=== PATIENT | female | born 1995 ===

== ENCOUNTER 2020-01-02 09:23 | Inpatient (IN) | payer OTHER ==
[2020-01-02] MEDS ORDERED: Penicillin G Potassium 5 MILL.UNITS VIAL ONE (09:58)
[2020-01-02 10:21] LABS: Hemoglobin 11.7 g/dL (12.0-16.0); Mean Corpuscular HGB CONC 33.6 g/dL (32.0-36.0); Mean Corpuscular Hemoglobin 31.5 pg (27.0-31.0); Mean Corpuscular Volume 93.8 fL (78.0-98.0); Mean Platelet Volume 7.1 fL (7.4-10.4); Platelet Count 236 thou/uL (130-400); RBC Distribution Width 12.1 % (11.5-14.5); Red Blood Cell (RBC) Count 3.71 mill/uL (4.20-5.40); White Blood Cell (WBC) Count 7.4 thou/uL (4.8-10.8)
[2020-01-02 11:02] LABS: Syphilis Antibody Nonreactive (Nonreactive); Syphilis Antibody Index 0.02 S/CO (<1.00 Non-Reactive)
[2020-01-02 11:03] LABS: HBSAg Index 0.23 S/CO (0-0.99); Hep B Surf Ag Non-Reactive S/CO (NonReactive)
[2020-01-02] MEDS ORDERED: Fentanyl 4 mcg/Bup 0.1% Cadd 100 ML ONE (11:10)
[2020-01-02 11:26] VITALS: BMI 26.3
[2020-01-02] MEDS ORDERED: Naloxone HCl 0.4 mg/ml Vial IVP PRN ×2 (11:47)
[2020-01-02] MEDS ORDERED: Ondansetron PF 4 MG/2 ML Vial IVP PRN ×2 (11:47→19:40)
[2020-01-02] MEDS ORDERED: diphenhydrAMINE 50 MG/ML VIAL IVP PRN (11:47)
[2020-01-02] MEDS ORDERED: Acetaminophen 325 MG TAB PO PRN (11:47)
[2020-01-02] MEDS ORDERED: EPHEDRINE 25 MG/5 ML SYRINGE SLOW IVP PRN (11:47)
[2020-01-02] MEDS ORDERED: Promethazine HCl 25 MG/ML VIAL IM PRN ×2 (11:47→19:40)
[2020-01-02] MEDS ORDERED: Lactated Ringer's 500 ML IV PRN (11:47)
[2020-01-02] MEDS ORDERED: Bupivacaine 0.25% HCL 30 ML VIAL ONE (11:50)
[2020-01-02] MEDS ORDERED: EPHEDRINE 25 MG/5 ML SYRINGE ONE (11:50)
[2020-01-02] MEDS ORDERED: Lidocaine 2% MPF 10 ML AMP (For Epidural Use) ONE (11:50)
[2020-01-02] MEDS ORDERED: Communication Order-Pharmacy FS SCH (12:00)
[2020-01-02] MEDS ORDERED: Fentanyl 4 mcg/Bupivacaine 0.1% Cassette 100 ML EPIDURAL SCH (12:00)
[2020-01-02] MEDS ORDERED: Lidocaine 2% 10 ML INJ ONE (13:07)
[2020-01-02] MEDS ORDERED: Penicillin G 2.5 MILL.units 50 ML ONE (13:08)
[2020-01-02] MEDS ORDERED: NS / Oxytocin 40 units/1000ml 1,000 ML ONE (13:11)
[2020-01-02] MEDS ORDERED: NS w/ Oxytocin 10 units 500 ML ONE (16:23)
[2020-01-02] MEDS ORDERED: NS / Oxytocin 40 units/1000ml 1,000 ML IV PRN (17:53)
[2020-01-02 17:59] LABS: SARS-CoV-2 MS2 Positive; SARS-CoV-2 N Gene Negative; SARS-CoV-2 S Gene Negative; SARS-CoV-2 by NAA Not Detected (NotDetected); SARS-CoV-2 orf1ab Negative
[2020-01-02] MEDS ORDERED: Penicillin G Potassium 5 MILL.UNITS in Sodium Chloride 0.9% 100 ML IVPB SCH (18:15)
[2020-01-02] MEDS ORDERED: Milk Of Magnesia 30 ML UDCUP PO PRN (19:40)
[2020-01-02] MEDS ORDERED: Bisacodyl 10 MG SUPP PR PRN (19:40)
[2020-01-02] MEDS ORDERED: NS / Oxytocin 40 units/1000ml 1,000 ML IV SCH (19:40)
[2020-01-02] MEDS ORDERED: Benzocaine-Menthol 82.5 ML CAN TOP PRN (19:40)
[2020-01-02] MEDS ORDERED: diphenhydrAMINE 25 MG CAP PO PRN (19:40)
[2020-01-02] MEDS ORDERED: HYDROcodone/Acetaminophen 5/325 mg Tablet PO PRN (19:40)
[2020-01-02] MEDS: Docusate Calcium (SURFAK) 240 MG CAP PO SCH (21:05)
[2020-01-02] MEDS: Ibuprofen 800 MG TAB PO SCH (21:05)
[2020-01-02] MEDS: HYDROcodone/Acetaminophen 5/325 mg Tablet PO PRN (21:06)
[2020-01-02] MEDS ORDERED: Penicillin G 2.5 MILL.units 2.5 MILL.UNITS in Premix Bag 1 BAG IVPB SCH (22:00)
[2020-01-03] MEDS: Ibuprofen 800 MG TAB PO SCH ×2 (04:03→13:54)
[2020-01-03] MEDS: HYDROcodone/Acetaminophen 5/325 mg Tablet PO PRN (04:04)
[2020-01-03 08:24] VITALS: BP 104/74; TEMP 98
[2020-01-03] MEDS ORDERED: Prenatal Vitamin 1 TAB PO SCH (09:00)
[2020-01-03] MEDS ORDERED: Adacel (T-DAP) 0.5 ML SYRINGE IM ONE (09:00)
[2020-01-03] MEDS: Ferrous Sulfate 325 MG TAB PO SCH ×2 (09:32→17:40)
[2020-01-03] MEDS: Docusate Calcium (SURFAK) 240 MG CAP PO SCH (09:32)
[2020-01-03] MEDS ORDERED: Measles/Mumps/Rubella 10 MCG/0.5 ML VIAL SC ONE (20:00)
== END 2020-01-03 20:24 | disposition home or self-care (01) | DRG 807 ==
LOC: L&D-LIB 09:23 → 3SW 20:41
PROVIDERS: ADMIT Family Medicine; ATTEND Family Medicine
PROC: 10E0XZZ Delivery of Products of Conception, External Approach (ICD-10-PCS; principal; 2020-01-02)
PROC: 10907ZC Drainage of Amniotic Fluid, Therapeutic from Products of Conception, Via Natural or Artificial Opening (ICD-10-PCS; 2020-01-02)
PROC: 0HQ9XZZ Repair Perineum Skin, External Approach (ICD-10-PCS; 2020-01-02)
PROC: 3E0234Z Introduction of Serum, Toxoid and Vaccine into Muscle, Percutaneous Approach (ICD-10-PCS; 2020-01-03)
DX: O24.429 Gestational diabetes mellitus in childbirth, unspecified control (principal); Z37.0 Single live birth; Z3A.38 38 weeks gestation of pregnancy; O99.824 Streptococcus B carrier state complicating childbirth; Z23 Encounter for immunization; O70.0 First degree perineal laceration during delivery; Z20.828 Contact with and (suspected) exposure to other viral communicable diseases
CPT/HCPCS: 36415; 51702; 85027; 86780; 86850; 86900; 86901; 87340; 87635; 90707; J2001; J2540; J2590; S0020; U0003